=== PATIENT | male | born 1950 | race Caucasian/White ===

== ENCOUNTER 2024-08-01 08:15 | Inpatient (IN) | payer MEDICARE ==
[2024-07-31 09:06] VITALS: BMI 35.5
[2024-08-01] MEDS ORDERED: HYDROmorphone 0.5 MG/0.5 ML SYRINGE IVP PRN (09:01)
[2024-08-01] MEDS: LACTATED RINGERS 1,000 ML IV SCH (09:43)
[2024-08-01 09:44] LABS: Glucose,Whole Blood 107 mg/dL (70-110)
[2024-08-01] MEDS: IV FLUID CONTINUATION 1,000 ML IV ONE (09:44)
[2024-08-01] MEDS: LACTATED RINGERS 1,000 ML IV ONE ×4 (09:44→19:15)
[2024-08-01 10:38] LABS: Partial Thromboplastin Time 24.8 sec (22.0-30.0); Prothrombin Time 10.9 sec (10.0-12.5)
[2024-08-01] MEDS: MIDAZOLAM 2 MG/2 ML VIAL IV ONE (11:23)
[2024-08-01] MEDS: ONDANSETRON 4 MG/2 ML VIAL IVP STA (11:45)
[2024-08-01] MEDS: DEXAMETHASONE SOD PHOSPHATE 4 MG/ML 1 ML VIAL IVP STA (11:46)
[2024-08-01] MEDS: HEPARIN SODIUM,PORCINE 5,000 UNIT/ML 1 ML VIAL SQ PRN (11:46)
[2024-08-01] MEDS: fentaNYL (PF) 50 MCG/ML 2 ML AMP IVP STA (12:05)
--- NOTE | 2024-08-01 12:22 | P.GSHP ---
History of Present Illness H&P Date: 08/01/24 Chief Complaint: Left renal mass The patient is a 74-year-old white male recently found to have a 12 cm left lower pole renal mass, suspicious for renal cell carcinoma. He is asymptomatic. He has been advised to undergo a left radical nephrectomy and comes for this reason. - Constitutional Constitutional: Denies weight loss - Cardiovascular Cardiovascular: Reports irregular heart beat - Genitourinary (Male) Genitourinary: Denies flank pain, Denies hematuria Past Medical History Past Medical History: Atrial Fibrillation, Cancer, Hearing Disorder / Deafness, Hyperlipidemia, Hypertension, Osteoarthritis (OA), Prostate Disorder Additional Past Medical History / Comment(s): Tumor on kidney, has not been confirmed if cancer or not. Hx skin cancer - removed from shoulder and face. Bilateral hearing aid use. "Swollen prostate, had surgery." Broke ribs 04/2024 after fall from ladder. History of Any Multi-Drug Resistant Organisms: None Reported Past Surgical History: Prostate Surgery Additional Past Surgical History / Comment(s): Pelvis surgery in the 60s, fatty tumor removed from neck, bilateral cataract surgery.. Past Anesthesia/Blood Transfusion Reactions: No Reported Reaction Smoking Status: Former smoker - Past Family History Father Family Medical History: Cancer Additional Family Medical History / Comment(s): Liver cancer, alcoholic, . Medications and Allergies Home Medications Medication Instructions Recorded Confirmed Type Apixaban [Eliquis] 5 mg PO BID 07/31/24 07/31/24 History Rosuvastatin Calcium 10 mg PO DAILY 07/31/24 08/01/24 History lisinopriL [Zestril] 20 mg PO DAILY 07/31/24 08/01/24 History Allergies Allergy/AdvReac Type Severity Reaction Status Date / Time No Known Allergies Allergy Verified 08/01/24 08:58 Surgical - Exam Vital Signs Temp Pulse Resp BP Pulse Ox 97.4 F L 64 18 139/65 95 08/01/24 09:01 08/01/24 09:01 08/01/24 09:01 08/01/24 09:01 08/01/24 09:01 - General well developed, well nourished, no distress - Neck no masses, trachea midline - Respiratory normal respiratory effort - Abdomen Abdomen: soft, non tender, masses (LUQ Mass), no guarding, no rigid, no rebound - Genitourinary normal penis with no external lesions, testicles non-tender left: scrotal mass/hydrocele - Psychiatric oriented to time, oriented to person, oriented to place, speech is normal, memory intact Results - Imaging CT scan - abdomen: report reviewed, image reviewed Assessment and Plan (1) Neoplasm of uncertain behavior of left kidney Current Visit: Yes Status: Acute Code(s): D41.02 - NEOPLASM OF UNCERTAIN BEHAVIOR OF LEFT KIDNEY SNOMED Code(s): 048044037805639 Plan: I discussed the rationale behind doing an open left radical nephrectomy. It does not appear necessary to remove the adrenal gland. I explained the procedure in detail, as well as the possible complications of this surgical procedure. These complications include anesthesia, bleeding, infection, bowel injury, splenic injury, post-op paralytic ileus, bowel obstruction, and chylous ascites. I also discussed the consideration of decreased renal function on a short-term and long-term basis. The patient expressed an understanding.
--- NOTE | 2024-08-01 13:04 | P.ANPRN ---
Procedure Note - Anesthesia - Epidural/Spinal Epidural Continuous Time Out Performed: Yes Date of Procedure: 08/01/24 Procedure Start Time: 11:23 Procedure Stop Time: 11:35 Location of Patient: PreOp Indication: Acute Post-Operative Pain, Requested by Surgeon Sedation Type: Sedate with meaningful contact maintained Preparation: Sterile Prep Number of Attempts: 1 Position: Supine Catheter Depth at Skin (cm): 11 Catheter: Indwelling Needle Guage: 18 Injectate: lido % 3cc. Test Lidocaine 1.5% with epi 5cc Narrative: Attempt at T10. No avail. Attempt at L2-3 +success. Sterile prep and drape. Requested by emani. Local at site. 18g touhy with LIVE to AIR. Hydrodisection and easy thread of catheter. Negative aspiration. Test dose negative. Blood Aspirated: No Pain Paresthesia on Injection Noted: No Events: Uneventful and Well Tolerated
--- NOTE | 2024-08-01 13:05 | P.ANPRN ---
Procedure Note - Anesthesia - Invasive Line Right Arterial Line Time Out Performed: Yes (1205) Date of Procedure: 08/01/24 Time of Procedure: 12:06 Location of Patient: PreOp Preparation: Sterile Prep, Sterile Dressing Arterial Line Location: Radial (right) Ultrasound Used: Yes Purpose - Visualization and Identification of Vasculature: Yes Needle Guage: 20g Image Stored and Saved: Yes Narrative: Invasive line placement per sterile protocol utilized.
[2024-08-01] MEDS ORDERED: NALOXONE 0.4 MG/ML 1 ML VIAL IV PRN (13:09)
[2024-08-01] MEDS ORDERED: MORPHINE SULFATE 2 MG/ML SYRINGE IVP PRN (13:09)
[2024-08-01] MEDS ORDERED: ONDANSETRON 4 MG/2 ML VIAL IVP PRN (13:09)
[2024-08-01] MEDS ORDERED: NALBUPHINE 10 MG/ML (10 ML MDV) IV PRN (13:09)
[2024-08-01] MEDS ORDERED: ROCURONIUM 10 MG/ML (5 ML VIAL) IV ONE (13:56)
[2024-08-01] MEDS ORDERED: ePHEDrine 50 MG/ML 1 ML VIAL ONE (13:56)
[2024-08-01] MEDS ORDERED: PROPOFOL 10 MG/ML 20 ML VIAL IV ONE (13:56)
[2024-08-01] MEDS ORDERED: GLYCOPYRROLATE 0.2 MG/ML 2 ML VIAL ONE (13:56)
[2024-08-01] MEDS ORDERED: NEOSTIGMINE 1 MG/ML 10 ML VIAL ONE (13:56)
[2024-08-01] MEDS ORDERED: SUCCINYLCHOLINE CHLORIDE 200 MG/10 ML VIAL IV ONE (13:56)
[2024-08-01] MEDS ORDERED: ALBUMIN HUMAN 5% (25gm) 500 ML VIAL IVPB ONE (13:56)
[2024-08-01] MEDS ORDERED: fentaNYL (PF) 50 MCG/ML 2 ML AMP ONE (13:56)
[2024-08-01] MEDS ORDERED: LIDOCAINE 1% INJ 10MG/ML (20 ML MDV) ONE (13:56)
[2024-08-01 16:12] LABS: HGB 11.5 gm/dL (13.0-17.5); MCH 30.8 pg (25.0-35.0); MCHC 32.8 g/dL (31.0-37.0); MCV 93.8 fL (80.0-100.0); Mean Platelet Volume 8.6; Platelet Count 191 k/uL (150-450); RBC 3.73 m/uL (4.30-5.90); RDW 13.2 % (11.5-15.5); WBC 10.9 k/uL (3.8-10.6)
[2024-08-01] MEDS: fentaNYL (PF) 50 MCG/ML 2 ML AMP MISCELLANE ONE (16:54)
[2024-08-01] MEDS: LIDOCAINE 2% (PF) 20 MG/ML 2 ML VIAL MISCELLANE ONE (16:55)
--- NOTE | 2024-08-01 18:28 | P.OP ---
Date of Procedure: 08/01/24 Preoperative Diagnosis: Left renal mass Postoperative Diagnosis: Same Procedure(s) Performed: Left radical nephrectomy Anesthesia: ESMER Surgeon: Yovanny Stoddard Pipe Bender #1: Joe Morton Estimated Blood Loss (ml): 600 IV fluids (ml): 2,100 Pathology: other (Left kidney and adrenal gland) Condition: stable Disposition: PACU Indications for Procedure: The patient is a 74-year-old white male recently found to have a 12 cm left lowe r pole renal mass, suspicious for renal cell carcinoma. He is asymptomatic. He has been advised to undergo a left radical nephrectomy and comes for this reason. Operative Findings: Very large mass arising from the anterior lower pole of the left kidney. Description of Procedure: The patient was taken to the operating room and placed in the supine position. After being given general anesthesia, the abdomen was prepped and draped sterilely. A left sided chevron incision was made using the scalpel. The Bovie electrocautery was used to incise the subcutaneous tissues and muscular layers of the abdominal wall down to the peritoneum. The peritoneum was then carefully entered, and opened the full length of the incision. The abdomen was examined, and no abnormalities were noted other than the renal mass. Specifically, there was no evidence of malignancy elsewhere within the abdomen. The Bookwalter retractor was used for exposure. The peritoneum was incised at the line of Toldt, allowing the left hemicolon to be mobilized medially off of the tumor, which arises from the anterior kidney. Some edema was noted, indicative of reaction. This was done until the aorta was exposed anteriorly. The left renal vein was identified at this time. Next, the tail of Gerota's fascia was dissected and isolated. Both the ureter and gonadal vessels were identified. Both were clipped and divided. Dissection then continued lateral to the aorta, with connective tissue clipped prior to dividing it, up to the renal hilum. No adenopathy was identified. The left renal vein was isolated, and a 2-0 silk tie passed around it. Next, the left renal artery was identified and ligated using a 2-0 silk tie. The left renal vein was then ligated proximally and distally using 2-0 silk ties. A suture ligature was placed through the proximal aspect of the vein prior to dividing it. The left renal artery was then ligated twice proximally and once distally using 2-0 silk ties prior to dividing it. The remaining hilar tissues were clipped and divided at this time. Once the hilar dissection had been completed, the kidney was dissected off of the posterior abdominal wall utilizing blunt dissection. The remaining lateral attachments were divided, leaving only the superior attachments. The thick perinephric fat was divided down to the upper pole of the kidney. The remaining dissection was then performed over the superior aspect of the kidney, thus preserving the left adrenal gland. Once all attachments were divided, the specimen was removed. The surgical field was examined for hemostasis. Some oozing was noted from the left adrenal gland, requiring placement of a silk suture. However, it was not possible to obtain hemostasis, and therefore the adrenal gland was removed after clipping and cutting its superior attachments. Hemostasis within the entire surgical field was excellent at this time. Surgicel was placed over the superior attachments. The Bookwalter retractor was removed. The abdominal contents were allowed to return to their normal location. Each individual muscle layer of the anterior abdominal wall was closed using #1 Vicryl suture in a running fashion. Hemostasis within the subcutaneous tissues was excellent. The skin was closed using jolie. A sterile gauze dressing was applied over the incision. All sponge and needle counts were correct. The patient tolerated the procedure well was taken to the recovery room in stable condition.
[2024-08-01] MEDS: DEXTROSE 5%-0.45% NACL 1,000 ML IV SCH (19:40)
[2024-08-01] MEDS: HEPARIN SODIUM,PORCINE 5,000 UNIT/ML 1 ML VIAL SQ SCH (23:55)
--- NOTE | 2024-08-02 06:51 | P.PN ---
Progress Note - Text 08/02/24 624am 74-year-old male status post radical nephrectomy by Dr. Stoddard, patient has an epidural catheter for postop pain control with a solution running at 8 cc an hour with a VAS of 0. Patient has no motor or sensory deficit. Plan to continue epidural infusion
[2024-08-02 08:20] LABS: HGB 9.9 g/dL (13.0-17.0); MCH 30.2 pg (27.0-32.0); MCHC 31.9 g/dL (32.0-37.0); MCV 94.5 FL (80.0-97.0); Mean Platelet Volume 11.2 FL (9.5-12.2); NRBC Per 100 WBC 0 X 10*3/uL (0.00-0.01); Platelet Count 185 X 10*3/uL (140-440); RBC 3.28 X 10*6/uL (4.40-5.60); RDW 13.6 % (11.5-14.5); WBC 10.33 X 10*3/uL (4.50-10.00)
[2024-08-02 08:21] LABS: Basophils # (A) 0.02 X 10*3/uL (0.00-0.10); Basophils % (A) 0.2 %; Eosinophils # (A) 0.03 X 10*3/uL (0.04-0.35); Eosinophils % (A) 0.3 %; Lymphocytes # (A) 1.36 X 10*3/uL (0.90-5.00); Lymphocytes % (A) 13.2 %; Monocytes # (A) 0.84 X 10*3/uL (0.20-1.00); Monocytes % (A) 8.1 %; Neutrophils # (A) 8.04 X 10*3/uL (1.80-7.70); Neutrophils % (A) 77.8 %
[2024-08-02] MEDS: lisinopriL 20 MG TAB PO SCH (08:24)
[2024-08-02] MEDS: ATORVASTATIN 20 MG TAB PO SCH (08:24)
[2024-08-02] MEDS: diphenhydrAMINE 50 MG/ML 1 ML VIAL IVP PRN (17:16)
--- NOTE | 2024-08-02 17:18 | P.PN ---
Subjective Progress Note Date: 08/02/24 Principal diagnosis: Left renal mass Postop day #1 status post left open radical nephrectomy, is having incisional and diffuse abdominal pain. Did have a episode of vomiting this a.m. which has resolved. Denies any nausea, has not ambulated yet. Pain is controlled Objective - Vital Signs Vital signs: Vital Signs Temp 97.5 F L 08/02/24 14:35 Pulse 69 08/02/24 14:35 Resp 17 08/02/24 14:35 BP 118/64 08/02/24 14:35 Pulse Ox 96 08/02/24 14:35 FiO2 Intake & Output 08/01/24 08/02/24 08/02/24 18:59 06:59 18:59 Intake Total 2500 650 Output Total 1050 300 Balance 1450 650 -300 Weight 113.8 kg 113.8 kg Intake: IV 2500 650 Output: Urine 450 300 Uretheral (White) 300 Estimated Blood Loss 600 Other: Voiding Method Indwelling Catheter Indwelling Catheter - Constitutional General appearance: Present: no acute distress - Gastrointestinal General gastrointestinal: Present: soft. Absent: distended, tenderness - Psychiatric Psychiatric: Present: A&O x's 3 - Labs CBC & Chem 7: 08/02/24 05:15 Labs: Abnormal Lab Results - Last 24 Hours (Table) 08/02/24 Range/Units 05:15 WBC 10.33 H (4.50-10.00) X 10*3/uL RBC 3.28 L (4.40-5.60) X 10*6/uL Hgb 9.9 L (13.0-17.0) g/dL Hct 31.0 L (39.6-50.0) % MCHC 31.9 L (32.0-37.0) g/dL Neutrophils # 8.04 H (1.80-7.70) X 10*3/uL Eosinophils # 0.03 L (0.04-0.35) X 10*3/uL Assessment and Plan Assessment: Status post left sided open radical nephrectomy -Ambulate -Pain control -keep White catheter in place -[facility] tomorrow
[2024-08-02 18:21] LABS: BUN/Creat Ratio 16.62 Ratio (12.00-20.00); Blood Urea Nitrogen 26.6 mg/dL (9.0-27.0); Calcium 8.6 mg/dL (8.7-10.3); Carbon Dioxide 25.8 mmol/L (21.6-31.8); Chloride 103 mmol/L (96-109); Glucose 131 mg/dL (70-110); Potassium 5.1 mmol/L (3.5-5.5); Sodium 139 mmol/L (135-145)
[2024-08-02] MEDS: ROPIVACAINE 250 MG, HYDROMORPHONE (PF) 5 MG in SODIUM CHLORIDE 0.9% 200 ML EPIDURAL PRN (20:40)
--- NOTE | 2024-08-03 08:45 | P.PN ---
Subjective Progress Note Date: 08/03/24 POD #2 S/P left open radical nephrectomy, pain is controlled, denies any nausea or vomiting. Is passing flatus Objective - Vital Signs Vital signs: Vital Signs Temp 99.0 F 08/03/24 06:40 Pulse 78 08/03/24 06:40 Resp 18 08/03/24 06:40 BP 130/57 08/03/24 06:40 Pulse Ox 92 L 08/03/24 06:40 FiO2 Intake & Output 08/02/24 08/03/24 08/03/24 18:59 06:59 18:59 Output Total 750 1325 Balance -750 -1325 Output: Urine 750 1325 Uretheral (White) 300 Other: Voiding Method Indwelling Catheter Indwelling Catheter - Constitutional General appearance: Present: no acute distress - Gastrointestinal Gastrointestinal Comment(s): Incision covered in dressing, clean General gastrointestinal: Present: soft. Absent: distended, tenderness - Psychiatric Psychiatric: Present: A&O x's 3 - Labs CBC & Chem 7: 08/02/24 05:15 08/02/24 08:15 Labs: Abnormal Lab Results - Last 24 Hours (Table) 08/02/24 Range/Units 08:15 Creatinine 1.6 H (0.6-1.5) mg/dL Est GFR (CKD-EPI) 45 L (>=60) Glucose 131 H (70-110) mg/dL Calcium 8.6 L (8.7-10.3) mg/dL Assessment and Plan Assessment: Status post left sided open radical nephrectomy -Ambulate -Pain control -keep White catheter in place -Advance to regular diet
[2024-08-03 09:03] LABS: Basophils # (A) 0.03 X 10*3/uL (0.00-0.10); Basophils % (A) 0.3 %; Eosinophils # (A) 0.41 X 10*3/uL (0.04-0.35); Eosinophils % (A) 4.3 %; HCT 30.2 % (39.6-50.0); HGB 9.6 g/dL (13.0-17.0); Lymphocytes # (A) 1.56 X 10*3/uL (0.90-5.00); Lymphocytes % (A) 16.3 %; MCH 30.4 pg (27.0-32.0); MCHC 31.8 g/dL (32.0-37.0); MCV 95.6 FL (80.0-97.0); Mean Platelet Volume 12.1 FL (9.5-12.2); Monocytes # (A) 1.05 X 10*3/uL (0.20-1.00); NRBC Per 100 WBC 0 X 10*3/uL (0.00-0.01); Neutrophils # (A) 6.49 X 10*3/uL (1.80-7.70); Neutrophils % (A) 67.9 %; Platelet Count 156 X 10*3/uL (140-440); RBC 3.16 X 10*6/uL (4.40-5.60); RDW 13.5 % (11.5-14.5); WBC 9.56 X 10*3/uL (4.50-10.00)
[2024-08-03 09:15] LABS: BUN/Creat Ratio 13.44 Ratio (12.00-20.00); Blood Urea Nitrogen 24.2 mg/dL (9.0-27.0); Calcium 8.3 mg/dL (8.7-10.3); Carbon Dioxide 23.8 mmol/L (21.6-31.8); Chloride 102 mmol/L (96-109); Glucose 101 mg/dL (70-110); Potassium 4.6 mmol/L (3.5-5.5); Sodium 135 mmol/L (135-145)
--- NOTE | 2024-08-03 09:50 | P.PN ---
Progress Note - Text Adequate analgesia. No epidural or anesthetic complications.
--- NOTE | 2024-08-04 10:29 | P.PN ---
Progress Note - Text Adequate analgesia. No anesthetic or epidural complication.
--- NOTE | 2024-08-04 11:20 | P.DS ---
Providers Date of admission: 08/01/24 08:15 Attending physician: Yovanny Stoddard Primary care physician: GREGORIA Cortes Hospital Course: This is a 74-year-old male with history of left-sided renal mass. Underwent an open left-sided radical nephrectomy by Dr. Escalera. Please see op note dated July 04 for surgery details. Patient was admitted to the hospital postoperatively. He did well in the postoperative period. On postop day #2 he was advanced to regular diet. White catheter and epidural was removed on postop day #3. He was discharged home on postop day #3, at time of discharge he was tolerating a diet, ambulating, pain is controlled Plan - Discharge Summary Discharge Rx Participant: No New Discharge Prescriptions: No Action lisinopriL [Zestril] 20 mg PO DAILY Apixaban [Eliquis] 5 mg PO BID Rosuvastatin Calcium 10 mg PO DAILY Discharge Medication List Apixaban [Eliquis] 5 mg PO BID 07/31/24 [History] Rosuvastatin Calcium 10 mg PO DAILY 07/31/24 [History] lisinopriL [Zestril] 20 mg PO DAILY 07/31/24 [History] Activity/Diet/Wound Care/Special Instructions: You can resume your Eliquis in 1 week from your surgery date No heavy lifting or straining Discharge Disposition: HOME SELF-CARE
[2024-08-04] MEDS: TAMSULOSIN 0.4 MG CAP.ER.24H PO SCH (17:12)
[2024-08-05 08:00] VITALS: BP 158/72; PULSE 88; RESP 18; TEMP 97.8
--- NOTE | 2024-08-05 08:08 | P.PN ---
Progress Note - Text Progress Note Date: 08/05/24 the patient is sp left radical nephrectomy. He was d/cd home yesterday but had sme problems voiding which corrected itself. His vss. He is voiding well He will be d/cd home today. regular diet He had an rx for norco yesterday. He will fu with Dr Stoddard in 1 week. His condition is good.
--- NOTE | 2024-08-12 19:06 | CDI ---
Documentation Clarification Form Date: 08/12/2024 07:01:14 PM From: Stacey Hatfield Phone: Admit Date: 08/01/2024 08:15:00 AM Patient Name: Yasmin Campbell Visit Number: [id number] Discharge Date: 08/05/2024 10:13:00 AM ATTENTION: The Clinical Documentation Specialists (CDI) and [facility] Coding Staff appreciate your assistance in clarifying documentation. Please respond to the clarification below the line at the bottom and electronically sign. The CDI & [facility] Coding staff will review the response and follow-up if needed. Please note: Queries are made part of the Legal Health Record. If you have any questions, please contact the author of this message via ITS. Doctor/Provider: Yovanny Stoddard The final diagnosis of the pathology report states: renal cell carcinoma. Coding guidelines do not allow coding professionals to code based on pathology results; therefore, clarification is requested. History/risk factors: 74yo M, A Fib, WILTON, HLD, HTN, OA, Hx skin Cancer Clinical Indicators: Leftrenal mass Treatment: Open left radicalnephrectomy Please clarify if you agree with the pathology report diagnosis of renal cell carcinoma: [ X] Yes [ ] No [ ] Other (please specify) [ ] Unable to determine (Template Last Revised: November 2020) MTDD
== END 2024-08-05 10:13 | disposition home or self-care (01) | DRG 658 ==
LOC: 2ORMAIN 08:15 → 4SSUR 16:41
PROVIDERS: ADMIT Urology; ATTEND Urology
PROC: 0GT20ZZ Resection of Left Adrenal Gland, Open Approach (ICD-10-PCS; 2024-08-01)
PROC: 0TT10ZZ Resection of Left Kidney, Open Approach (ICD-10-PCS; principal; 2024-08-01 10:15)
DX: C64.2 Malignant neoplasm of left kidney, except renal pelvis (principal); I48.91 Unspecified atrial fibrillation; I10 Essential (primary) hypertension; E78.5 Hyperlipidemia, unspecified; H91.93 Unspecified hearing loss, bilateral; R11.10 Vomiting, unspecified; R33.9 Retention of urine, unspecified; Z97.4 Presence of external hearing-aid; Z87.891 Personal history of nicotine dependence; Z85.828 Personal history of other malignant neoplasm of skin; Z80.0 Family history of malignant neoplasm of digestive organs; Z79.01 Long term (current) use of anticoagulants; Z79.899 Other long term (current) drug therapy
CPT/HCPCS: 80048; 85025; 85027; 85610; 85730; 86850; 86900; 86901; 88307